=== PATIENT | male | born 1970 | race Caucasian/White ===

== ENCOUNTER 2017-07-06 10:30 | Emergency (ER) | payer OTHER ==
[~2017-07-06] VITALS: Ht 185.4 cm; Wt 98.0 kg
[~2017-07-06 10:30] MED LIST: Z.0.NO CURRENT MEDS
[2017-07-06 10:33] VITALS: BP 167/77; PULSE 59; RESP 12; TEMP 98.4; O2SAT 95
[2017-07-06] MEDS ORDERED: MORPHINE SULFATE 4 MG/ML INJ IV PUSH ONE (10:45)
[2017-07-06] MEDS ORDERED: ESCI20TA PO (10:45)
[2017-07-06] MEDS ORDERED: ONDANSETRON HCL 4 MG/2 ML VIAL IV PUSH ONE (10:45)
[2017-07-06] MEDS ORDERED: TETANUS/DIPHTHERIA TOXOID ADULT 0.5 ML VIAL IM ONE (10:45)
[2017-07-06] MEDS ORDERED: ceFAZolin 2 GM PREMIX 50 ML IV ONE (10:45)
--- NOTE | 2017-07-06 10:45 | PD ---
HPI Chief Complaint: Laceration/Skin Injury Time Seen by Provider: 10:40 Travel History International Travel<30 days: No Contact w/Intl Traveler<30days: No Traveled to known affect area: No History of Present Illness HPI 47-year-old male with history of no significant past medical issues, presents to the ER today because he was using a table saw when he accidentally chopped the tip of his right index finger off, brings the distal digit with him. He denies any other issues or injuries. He had stopped by at urgent care and was told to come here. Modifying Factors: None Associated Signs & Symptoms: Right distal index finger amputation Risk Factors: None PFSH Past Surgical History Oral Surgery: Yes Social History Alcohol Use: Yes Tobacco Use: No Allergies-Medications (Allergen,Severity, Reaction): Coded Allergies: No Known Allergies (Verified , 07/06/17) Reported Meds & Prescriptions Reported Meds & Active Scripts Active Reported Escitalopram (Escitalopram Oxalate) 20 Mg Tab 20 Mg PO DAILY Review of Systems Except as stated in HPI: all other systems reviewed are Neg Physical Exam Narrative GENERAL: Well-developed middle age white male patient currently in mild distress. Awake and oriented 3. SKIN: Focused skin assessment warm/dry. HEAD: Atraumatic. Normocephalic. EYES: Pupils equal and round. No scleral icterus. No injection or drainage. ENT: No nasal bleeding or discharge. Mucous membranes pink and moist. NECK: Trachea midline. No JVD. CARDIOVASCULAR: Regular rate and rhythm. No murmur appreciated. RESPIRATORY: No accessory muscle use. Clear to auscultation. Breath sounds equal bilaterally. GASTROINTESTINAL: Abdomen soft, non-tender, nondistended. Hepatic and splenic margins not palpable. MUSCULOSKELETAL: No obvious deformities. No clubbing. No cyanosis. No edema. There is notable distal digit amputation above the distal interphalangeal joint with notable bone protrusion. Bleeding controlled currently. NEUROLOGICAL: Awake and alert. No obvious cranial nerve deficits. Motor grossly within normal limits. Normal speech. PSYCHIATRIC: Appropriate mood and affect; insight and judgment normal. Data Data Last Documented VS Vital Signs Date Time Temp Pulse Resp B/P (MAP) Pulse Ox O2 Delivery O2 Flow Rate FiO2 07/06/17 10:33 98.4 59 12 167/77 (107) 95 Orders Orders Morphine Inj (Morphine Inj) (07/06/17 10:45) Ondansetron Inj (Zofran Inj) (07/06/17 10:45) Cefazolin 2 Gm Premix (Ancef 2 Gm Premix (07/06/17 10:45) Tetanus/Diphtheria Tox Adult (Tetanus/Di (07/06/17 10:45) Finger ([id number]) (07/06/17 ) MDM Medical Decision Making Medical Screen Exam Complete: Yes Emergency Medical Condition: Yes Medical Record Reviewed: Yes Interpretation(s) Last 24 hours Impressions Finger X-Ray 07/06/17 0000 Signed Impressions: Service Date/Time: Thursday, July 06, 2017 11:18 - CONCLUSION: Complete avulsion of the distal tip of the second digit as above. Guanako Lincoln MD Differential Diagnosis Distal digit amputation Narrative Course Patient is given tetanus shot and Ancef in the ER. X-ray was done which confirms distal of dictation of the digit. Case was discussed with Dr. Varma who states that he would not try to reattach the distal digit in this country case, but would use a bone clipper to clip the remaining bone off and close his skin if possible but leave it open if not. And he states that these usually heal just fine over the bone if we just cut the bone flush with the scan. Patient can follow-up in his neck and can be on by mouth antibiotics for a week. Patient is given wound care instructions. Return for any signs of infection, bleeding, or new symptoms as needed. The plan was discussed with the patient and he states understanding. Diagnosis Primary Impression: Fingertip amputation Med/Other Pt SpecificInfo: Prescription(s) given Scripts Hydrocodone-Acetaminophen (Lortab) 5-325 Mg Tab 1-2 TAB PO Q6H Y for PAIN, #15 TAB 0 Refills Prov: Alex Abernathy MD 07/06/17 Cephalexin (Keflex) 500 Mg Capsule 500 MG PO QID for Infection for 7 Days, CAP 0 Refills Prov: Alex Abernathy MD 07/06/17 Disposition: 01 DISCHARGE HOME Condition: Stable Alex Abernathy MD Jul 06, 2017 10:45
--- NOTE | 2017-07-06 11:28 | RADRPT ---
EXAM DATE/TIME: 07/06/2017 11:18 [facility] COMPARISON: No previous studies available for comparison. INDICATIONS : Right hand second digit cut off tip of distal phalange with table saw. MEDICAL HISTORY : None. SURGICAL HISTORY : None. ENCOUNTER: Initial ACUITY: 1 day PAIN SCORE: 5/10 LOCATION: Right 2nd digit. FINDINGS: Examination of the second digit of the right hand demonstrates avulsion of the distal tip of the seco nd digit from the proximal diaphysis of the distal phalanx distally. Both the soft tissue and regiona l osseous structures are disrupted.. CONCLUSION: Complete avulsion of the distal tip of the second digit as above. Guanako Lincoln MD on July 06, 2017 at 11:26 Board Certified Radiologist. This report was verified electronically.
[2017-07-06] MEDS ORDERED: CEPH-460 PO (13:39)
[2017-07-06] MEDS ORDERED: HYDR-3533 PO (13:39)
--- NOTE | 2017-07-06 13:47 | PD ---
Physical Exam Date Seen by Provider: Jul 06, 2017 Time Seen by Provider: 13:47 Data Data Last Documented VS Vital Signs Date Time Temp Pulse Resp B/P (MAP) Pulse Ox O2 Delivery O2 Flow Rate FiO2 07/06/17 10:33 98.4 59 12 167/77 (107) 95 Orders Orders Morphine Inj (Morphine Inj) (07/06/17 10:45) Ondansetron Inj (Zofran Inj) (07/06/17 10:45) Cefazolin 2 Gm Premix (Ancef 2 Gm Premix (07/06/17 10:45) Tetanus/Diphtheria Tox Adult (Tetanus/Di (07/06/17 10:45) Finger ([id number]) (07/06/17 ) MDM Supervised Visit with HAI: No Narrative Course I was asked to evaluate this patient's right index finger partial amputation. The patient was initially seen by Dr. Abernathy. Please see her note for full H&P. On my exam there is a irritation of the distal tip of the right index finger, just proximal to the proximal nail fold.. Laceration repair was performed. Please see my procedure note for details. Dr. Abernathy retains care of this patient. Please see her note for disposition. Procedures Procedure Narrative LACERATION LOCATION: Distal tip of right index finger LENGTH: 1.5 cm NUMBER OF STITCHES/DADA: 7 REPAIR: The area of the laceration was prepped with Betadine and sterilely draped. Digital block was performed with 1% lidocaine. The wound was copiously irrigated and explored without evidence of foreign body, tendon injury or neurovascular injury. The wound was closed using 4-0 nylon. This was a single layer repair. A sterile dressing was applied. The patient was advised to keep the dressing clean and dry. Patient tolerated the procedure well. Diagnosis Primary Impression: Fingertip amputation Scripts Hydrocodone-Acetaminophen (Lortab) 5-325 Mg Tab 1-2 TAB PO Q6H Y for PAIN, #15 TAB 0 Refills Prov: Alex Abernathy MD 07/06/17 Cephalexin (Keflex) 500 Mg Capsule 500 MG PO QID for Infection for 7 Days, CAP 0 Refills Prov: Alex Abernathy MD 07/06/17 Disposition: 01 DISCHARGE HOME Condition: Stable Alondra Saavedra Jul 06, 2017 13:47
[2017-07-06] MEDS ORDERED: ACETAMINOPHEN/HYDROcodone 325 MG/5 MG TAB PO ONE (16:00)
== END 2017-07-06 15:50 | disposition home or self-care (01) ==
LOC: NEPC 10:30
DX: S68.120A Partial traumatic metacarpophalangeal amputation of right index finger, initial encounter (principal); W31.2XXA Contact with powered woodworking and forming machines, initial encounter; Z79.899 Other long term (current) drug therapy; Z23 Encounter for immunization
CPT/HCPCS: 12001; 73140; 90471; 90714; 96374; 96375; 99284; J0690; J2270; J2405